=== PATIENT | male | born 1980 | race Caucasian/White ===

== ENCOUNTER 2017-02-01 11:20 | Emergency (ER) | payer MEDICAID, OTHER ==
[2017-02-01 11:32] VITALS: RESP 16; TEMP 98.6
[2017-02-01 12:11] LABS: COLOR RED
[2017-02-01 12:15] LABS: RBC,URINE >182 /hpf (0-3); WBC,URINE 50-182 /hpf (0-3)
[2017-02-01 12:18] LABS: BACTERIA 1+ /hpf (NONE SEEN)
[2017-02-01 12:47] LABS: % IMMATURE GRANULYOCYTES 0.4 % (0.0-1.1); ABSOLUTE IMMATURE GRANULOCYTES 0.04 10^3/uL (0.00-0.10); ADD DIFF? NO; ADD MORPH? NO; ADD SCAN? NO; ATYPICAL LYMPHOCYTE FLAG 0 (0-99); FRAGMENT RBC FLAG 0 (0-99); HEMOGLOBIN 16.2 g/dL (13.7-17.5); LEFT SHIFT FLG 0 (0-99); LIPEMIA HEMOLYSIS FLAG 90 (0-99); MEAN CELL HEMOGLOBIN 32.5 pg (27.9-34.1); MEAN CELL HEMOGLOBIN CONCENTR. 34.5 g/dL (32.4-36.7); MEAN CELL VOLUME 94.4 fL (81.5-99.8); MEAN PLATELET VOLUME 9.1 fL (8.7-11.7); PLATELET CLUMPS FLAG 10 (0-99); PLATELET COUNT 314 10^3/uL (150-400); RED BLOOD CELL COUNT 4.98 10^6/uL (4.40-6.38); RED CELL DISTRIBUTION WIDTH 12.8 % (11.5-15.2)
--- NOTE | 2017-02-01 12:50 | EDPHY ---
H & P Smoking Status: Never smoked Time Seen by Provider: 02/01/17 12:22 HPI/ROS: CHIEF COMPLAINT: "I'm pissing blood" HISTORY OF PRESENT ILLNESS: 36-year-old male with multiple recent female unprotected sexual partners, recent methamphetamine use, complaining of gross hematuria since this morning with passage of multiple clots. No dysuria. No increased frequency. No back or flank pain. No unusually aggressive sexual activity or trauma during sex. No testicular pain. No unusual bruising . No gingival bleeding. No unexpected weight loss. No melena or hematochezia. PRIMARY CARE PROVIDER: REVIEW OF SYSTEMS: A ten point review of systems was performed and is negative with the exception of the items mentioned in the HPI PAST MEDICAL & SURGICAL HISTORY: subdermal heart-shaped penile implant 5 years ago . No history of STD. SOCIAL HISTORY: positive methamphetamine use yesterday PHYSICAL EXAM (Prior to examination, patient consented to physical exam, hands were washed and my usual and customary physical exam procedures followed) 1) GENERAL: Well-developed, well-nourished, alert and oriented. Appears to be in no acute distress. 2) HEAD: Normocephalic, atraumatic 3) HEENT: Pupils equal, round, reactive to light bilaterally. Sclera anicteric. 4) NECK: Full range of motion, no meningeal signs. 5) LUNGS: Clear auscultation bilaterally, no wheezes, no rhonchi, no retractions. 6) HEART: Regular rate and rhythm, no murmur, no heave, no gallop. 7) ABDOMEN: No guarding, no rebound, no focal tenderness, negative McBurney's, negative Tobias's, negative Rovsing's, negative peritoneal sign, I am unable to elicit any abdominal pain on exam 8) MUSCULOSKELETAL: Moving all extremities, no focal areas of tenderness, no obvious trauma. No peripheral edema or discoloration. 9) BACK: No CVA tenderness, no midline vertebral tenderness, no fluctuance, no step-off, no obvious trauma, no visual or palpable abnormality. 10) SKIN: No rash, no petechiae. 11) : Circumcised male, no urethral discharge, no blood. There is a subdermal heart shaped implant dorsal aspect of the penis proximally. No signs of infection or trauma to the penile implant DIFFERENTIAL DIAGNOSIS: in no particular include but limited to malignancy, cystitis, nephrolithiasis, STD , rhabdomyolysis (Isaiah Evans) Constitutional: Initial Vital Signs Temperature (C) 37.0 C 02/01/17 11:31 Heart Rate 75 02/01/17 11:31 Respiratory Rate 16 02/01/17 11:31 Blood Pressure 117/90 H 02/01/17 11:31 O2 Sat (%) 95 02/01/17 11:31 O2 Delivery Mode Room Air Allergies/Adverse Reactions: No Known Allergies Allergy (Unverified 02/01/17 11:31) Home Medications: Medication Instructions Recorded Cephalexin [Keflex] 500 mg PO TID 7 Days cap 02/01/17 Phenazopyridine HCl [Pyridium] 200 mg PO PC #10 tab 02/01/17 MDM/Departure - MDM Imaging: Discussed imaging studies w/ scallop dredger Radiologist - MDM Imaging Results: Imaging Impressions Abdomen/Pelvis CT 02/01/17 12:40 Impression: 1. Diffuse bladder wall thickening which could be related to cystitis, sequela of chronic bilateral obstruction, or less likely underdistention (wall thickening appears greater than typically seen for this degree of distention). 2. Punctate nonobstructing nephrolithiasis. 3. Subcentimeter hypodensities in the left kidney, poorly visualized on this unenhanced CT, too small to characterize. 4. Additional findings, as above. Findings discussed with Jerald Evans PA-C on February 01, 2017 at 1356 hours. Attention: This CT examination is specifically designed to evaluate patients who are clinically suspected of having acute obstructive uropathy. This examination does not use radiographic contrast, and as such, provides only a limited evaluation of the abdomen, pelvis, and retroperitoneum. If there is further clinical suspicion for pathological conditions other than obstructive uropathy, a complete CT evaluation of the abdomen and pelvis utilizing intravenous and oral contrast should be considered. Images reviewed myself (Isaiah Evans) Medications Given: Discontinued Medications Ceftriaxone Sodium/Dextrose (Rocephin 1 Gm (Premix)) 50 mls @ 100 mls/hr IV EDNOW ONE PRN Reason: Protocol Stop: 02/01/17 14:33 Last Admin: 02/01/17 14:35 Dose: 50 mls ED Course/Re-evaluation: The patient was re-evaluated with serial examinations the case discussed with secondary supervising physician Dr. Antoine Rose in the ER. He does have evidence of more than likely cystitis. Urine has been cultured. Given dose of IV Rocephin in the ER and discharged with oral Keflex. Doubt urosepsis. Doubt pyelonephritis. Plan will be discharged with oral Keflex, Pyridium. Usual and customary discharge precautions and instructions provided (Isaiah Evans) I did not see this patient while he was in the emergency department. However his care was discussed with the PA while the patient was in the department. I agree with treatment plan and management (Antoine Rose) - Depart Disposition: Home, Routine, Self-Care Clinical Impression: Cystitis Condition: Good Instructions: Urinary Tract Infection in Men (ED) Additional Instructions: Return to the ER immediately if you experience fevers/chills, flu like symptoms , inability to tolerate oral intake, nausea or vomiting, or any other symptoms that concern you. Prescriptions: Cephalexin [Keflex] 500 mg PO TID 7 Days cap Phenazopyridine HCl [Pyridium] 200 mg PO PC #10 tab Referrals: [facility]AC[facility] [Other] - 1-2 days without fail
[2017-02-01 12:53] LABS: ANION GAP 12 mEq/L (8-16); CALCIUM 9.7 mg/dL (8.5-10.4); CARBON DIOXIDE 25 mEq/l (22-31); CHLORIDE 101 mEq/L (97-110); CREATININE 0.9 mg/dL (0.7-1.3); GLOMERULAR FILTRATION RATE > 60; GLUCOSE 99 mg/dL (70-100); SODIUM 138 mEq/L (134-144)
[2017-02-01 12:58] LABS: INR 1.01 (0.83-1.16); PROTIME(PATIENT) 13.2 SEC (12.0-15.0)
[2017-02-01 12:59] LABS: APTT 28.3 SEC (23.0-38.0)
[2017-02-01 13:58] LABS: BACTERIA 1+ /hpf (NONE SEEN); RBC,URINE 50-182 /hpf (0-3); WBC,URINE 50-182 /hpf (0-3)
[2017-02-01 14:53] LABS: COLOR RED; LEUKOCYTE ESTERASE,URINE 3+ (NEGATIVE); NITRITE,URINE NEGATIVE (NEGATIVE)
[2017-02-01 15:22] VITALS: BP 125/85; PULSE 87; O2SAT 97
== END 2017-02-01 15:22 | disposition home or self-care (01) ==
LOC: EDUNIT#
DX: N30.90 Cystitis, unspecified without hematuria (principal); B96.20 Unspecified Escherichia coli [E. coli] as the cause of diseases classified elsewhere
CPT/HCPCS: 96365; J0696